=== PATIENT | female | born 1970 | race African-American/Black ===

== ENCOUNTER 2017-02-18 19:48 | Emergency (ER) | payer OTHER ==
[~2017-02-18] VITALS: Ht 167.6 cm; Wt 241.0 kg
--- NOTE | ~2017-02-18 | EKG ---
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
[2017-02-18 19:51] VITALS: BP 119/104
[2017-02-18 20:21] LABS: HEMOGLOBIN 7.9 gm/dL (12.0-15.0); MCH 26.5 pg (26.0-34.0); MCHC 30.2 g/dL (28.0-37.0); MCV 87.7 fL (80.0-100.0); PLATELET COUNT 311 thou/uL (150-400); RBC 2.97 mil/uL (4.20-5.00); RDW 20.5 % (10.5-14.5); WBC 12.4 thou/uL (4.0-11.0)
[2017-02-18 20:23] LABS: MANUAL DIFF YES
[2017-02-18 20:27] LABS: CALCIUM 9.5 mg/dL (8.5-10.1); CREATININE 6.5 mg/dL (0.6-1.0); POTASSIUM 5.2 mmol/L (3.5-5.1)
[2017-02-18 20:53] LABS: ABSOLUTE NEUTROPHILS 9.4 thou/uL (1.4-8.2); TOTAL CELL COUNT 100
[2017-02-18 20:54] LABS: ANISOCYTOSIS 2+; POLYCHROMASIA 1+
[2017-02-18] MEDS ORDERED: OXYCODONE HCL 55 MG PO (21:56)
[2017-02-18] MEDS ORDERED: DUONEB 2.5-0.5 M3 ML (21:56)
[2017-02-18] MEDS ORDERED: XANAX 0.5 MG0.5 MG PO (21:57)
[2017-02-18] MEDS ORDERED: VOLTAREN GEL 1100 G2 (21:57)
[2017-02-18] MEDS ORDERED: BENADRYL25 MG PO (21:58)
[2017-02-18] MEDS ORDERED: LOPERAMIDE 2 MG2 M1 PO (22:00)
[2017-02-18] MEDS ORDERED: FENTANYL PATCH75 MCG TRANSDERM (22:00)
[2017-02-18] MEDS ORDERED: HYDROCODONE-APA1 TA1 PO (22:00)
[2017-02-18] MEDS ORDERED: FLOVENT HFA 1110 MCG INH (22:01)
[2017-02-18] MEDS ORDERED: PREVACID30 MG PO (22:02)
[2017-02-18] MEDS ORDERED: MICONAZOLE5 GM (22:02)
[2017-02-19 00:16] VITALS: BP 98/37
== END 2017-02-19 00:18 ==
LOC: ER 19:48 → EROBS 21:30
PROVIDERS: Emergency Medicine
DX: E87.5 Hyperkalemia (principal); L89.899 Pressure ulcer of other site, unspecified stage; L89.219 Pressure ulcer of right hip, unspecified stage; L89.319 Pressure ulcer of right buttock, unspecified stage; I95.9 Hypotension, unspecified; Z99.11 Dependence on respirator [ventilator] status; Z88.1 Allergy status to other antibiotic agents